=== PATIENT | female | born 1980 | race American Indian/Alaskan Native ===

== ENCOUNTER 2018-05-23 13:47 | Emergency (ER) | payer OTHER, BC ==
[2018-05-23 13:56] VITALS: RESP 18; TEMP 98.4
[2018-05-23] MEDS ORDERED: Naproxen 550 mg Tab PO STA (15:10)
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
[2018-05-23] MEDS ORDERED: Naproxen 550 mg Tab PO ONE (15:16)
[2018-05-23 15:48] VITALS: BP 124/84; PULSE 69
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
[2018-05-23 21:04] VITALS: O2SAT 99
== END 2018-05-23 15:48 | disposition home or self-care (01) ==
LOC: C.ER 13:47
DX: S16.1XXA Strain of muscle, fascia and tendon at neck level, initial encounter (principal); V89.2XXA Person injured in unspecified motor-vehicle accident, traffic, initial encounter